=== PATIENT | male | born 1995 | race Caucasian/White ===

== ENCOUNTER 2020-08-22 00:50 | Emergency (ER) | payer OTHER ==
[~2020-08-22] VITALS: Ht 182.9 cm; Wt 98.6 kg
--- NOTE | 2020-08-22 01:32 | PHYS DOC ---
General Adult EDM: Chief Complaint: PSYCH EVALUATION HPI: HPI: 24-year-old male presents with suicidal thoughts. The patient has not been thinking about suicide, but has had several similar dreams where his grandmother dies and he tells himself that he might be better off going with her. He wakes up in a cold sweat. Patient is very bothered by this because he has never felt like a person that would think about suicide. He denies having any sort of a plan. 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 This conversation apparently was not helpful though the patient does not elaborate. He has no medical complaints at this time. Review of Systems: Review of Systems: Constitutional: Denies fever or chills Eyes: Denies change in visual acuity HENT: Denies nasal congestion or sore throat Respiratory: Denies cough or shortness of breath Cardiovascular: Denies chest pain or edema GI: Denies abdominal pain, nausea, vomiting, bloody stools or diarrhea : Denies dysuria Musculoskeletal: Denies back pain or joint pain Integument: Denies rash Neurologic: Denies headache, focal weakness or sensory changes Endocrine: Denies polyuria or polydipsia Lymphatic: Denies swollen glands Psychiatric: Suicidal dreams Physical Exam: PE: Constitutional: Well developed, well nourished, no acute distress, non-toxic appearance. [] HENT: Normocephalic, atraumatic, bilateral external ears normal, oropharynx moist, no oral exudates, nose normal. [] Eyes: PERRLA, EOMI, conjunctiva normal, no discharge. [] Neck: Normal range of motion, no tenderness, supple, no stridor. [] Cardiovascular: Heart rate regular rhythm, no murmur [] Lungs & Thorax: Bilateral breath sounds clear to auscultation [] Abdomen: Bowel sounds normal, soft, no tenderness, no masses, no pulsatile masses. [] Skin: Warm, dry, no erythema, no rash. [] Back: No tenderness, no CVA tenderness. [] Extremities: No tenderness, no cyanosis, no clubbing, ROM intact, no edema. [] Neurologic: Alert and oriented X 3, normal motor function, normal sensory function, no focal deficits noted. [] Psychologic: Affect normal, judgement normal, mood concerned. [] EKG: EKG: [] Radiology/Procedures: Radiology/Procedures: [] Heart Score: C/O Chest Pain: N/A Risk Factors: Risk Factors: DM, Current or recent (<one month) smoker, HTN, HLP, family history of CAD, obesity. Risk Scores: Score 0 - 3: 2.5% MACE over next 6 weeks - Discharge Home Score 4 - 6: 20.3% MACE over next 6 weeks - Admit for Clinical Observation Score 7 - 10: 72.7% MACE over next 6 weeks - Early Invasive Strategies Course & Med Decision Making: Course & Med Decision Making Pertinent Labs and Imaging studies reviewed. (See chart for details) The patient's labs are unremarkable except for an elevated white count. I do not see any evidence of infection as a cause. His urinalysis is negative for infection. His urine drug screen is negative. The patient is medically stable for behavioral admission. The behavioral health professional has determined that the patient can be discharged with a safety plan. He will follow-up outpatient. He is stable for discharge at this time. [] Ezio Disclaimer: Ezio Disclaimer: This electronic medical record was generated, in whole or in part, using a voice recognition dictation system. Departure Departure: Impression: Primary Impression: Suicidal thoughts Disposition: HOME / SELF CARE / HOMELESS Condition: STABLE Referrals: PCP,UNKNOWN (PCP) Patient Instructions: Suicidal Feelings, How to Help Yourself JERROD CHOI DO Aug 22, 2020 01:32
[2020-08-22 02:23] LABS: CREATININE 1.2 mg/dL (0.7-1.3); GFR 75.7; POTASSIUM 3.3 mmol/L (3.5-5.1)
[2020-08-22 02:24] LABS: BASO % 0 % (0-3); EOS # 0.2 x10^3/uL (0.0-0.7); EOS % 1 % (0-3); HEMATOCRIT 46.6 % (39.0-53.0); LYMPH # 2.5 x10^3/uL (1.0-4.8); LYMPH % 14 % (24-48); MEAN CORPUSCULAR HEMOGLOBIN 31 pg (25-35); MEAN CORPUSCULAR HGB CONC 34 g/dL (31-37); MEAN CORPUSCULAR VOLUME 90 fL (79-100); MONO # 0.8 x10^3/uL (0.0-1.1); MONO % 5 % (0-9); NEUT # 13.8 x10^3uL (1.8-7.7); NEUT % 80 % (31-73); PLATELET COUNT 296 x10^3/uL (140-400); RED CELL DISTRIBUTION WIDTH 12.6 % (11.5-14.5); WHITE BLOOD COUNT 17.4 x10^3/uL (4.0-11.0)
[2020-08-22 02:30] LABS: ALBUMIN 4.3 g/dL (3.4-5.0); ALBUMIN/GLOBULIN RATIO 1.3 (1.0-1.7); TOTAL BILIRUBIN 0.3 mg/dL (0.2-1.0); TOTAL PROTEIN 7.7 g/dL (6.4-8.2)
[2020-08-22 02:53] LABS: BARBITURATES NEG (NEG); BENZODIAZEPINES NEG (NEG); CANNABINOIDS NEG (NEG); COCAINE NEG (NEG); METHADONE NEG (NEG); OPIATES NEG (NEG); PHENCYCLIDINE NEG (NEG)
[2020-08-22 03:06] LABS: BACTERIA,URINE FEW /HPF (0-FEW); BILIRUBIN,URINE NEG (NEG); CLARITY,URINE HAZY; COLOR,URINE YELLOW; GLUCOSE,URINE NEG (NEG); NITRITE,URINE NEG (NEG); RBC,URINE 0 /HPF (0-2); SQUAMOUS EPITHELIAL CELL,UR OCC /LPF; WBC,URINE 0 /HPF (0-4)
[2020-08-22 03:07] LABS: HYALINE CASTS, URINE OCC /HPF
[2020-08-22 03:09] LABS: AMPHETAMINE/METHAMPHETAMINE NEG (NEG)
[2020-08-22 03:20] VITALS: BP 147/81
[2020-08-22 03:24] LABS: % SEGS 72 % (35-66)
[2020-08-22 03:25] LABS: % ATYL 8 % (0-0); % BANDS 3 % (0-9); % LYMPHS 13 % (24-48); % MONOS 4 % (0-10); PLT ESTIMATE ADEQUATE (ADEQUATE)
== END 2020-08-22 03:30 | disposition home or self-care (01) ==
LOC: ER 00:50
DX: R45.851 Suicidal ideations (principal)
CPT/HCPCS: 36415; 80053; 80307; 81001; 85007; 85025; 99285-25

== ENCOUNTER 2020-10-29 16:19 | Emergency (ER) | payer OTHER ==
[~2020-10-29] VITALS: Ht 182.9 cm; Wt 98.6 kg
[2020-10-29 16:29] VITALS: BP 147/81
[2020-10-29] MEDS ORDERED: PRED50TA PO (16:58)
--- NOTE | 2020-10-29 16:58 | PHYS DOC ---
Past History Past Medical History: Anxiety, Other Additional Past Medical Histor: left wrist fx Past Surgical History: Other Additional Past Surgical Histo: [place] teeth removed Alcohol Use: None General Adult EDM: Chief Complaint: HIP PAIN HPI: HPI: 25-year-old male presents with right hip pain. 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 They have been a longer and more intense than his typical training. He has been having intermittent pain with the right lateral hip as well as the flexor muscles on both sides but more on the right. He presents today because they had a longer run yesterday and today was difficult for him to get up and down out of chairs. He had an appointment with his primary physician but that person had to leave for a medical emergency and told the patient come to the ER. Patient denies any falls. He has no other complaints at this time. Review of Systems: Review of Systems: Constitutional: Denies fever or chills Eyes: Denies change in visual acuity HENT: Denies nasal congestion or sore throat Respiratory: Denies cough or shortness of breath Cardiovascular: Denies chest pain or edema GI: Denies abdominal pain, nausea, vomiting, bloody stools or diarrhea : Denies dysuria Musculoskeletal: Right hip pain Integument: Denies rash Neurologic: Denies headache, focal weakness or sensory changes Endocrine: Denies polyuria or polydipsia Lymphatic: Denies swollen glands Psychiatric: Denies depression or anxiety Allergies: Allergies: Allergies Coded Allergies Type Severity Reaction Last Updated Verified No Known Drug Allergies 08/22/20 No Physical Exam: PE: Constitutional: Well developed, well nourished, no acute distress, non-toxic appearance. [] HENT: Normocephalic, atraumatic, bilateral external ears normal, oropharynx moist, no oral exudates, nose normal. [] Eyes: PERRLA, EOMI, conjunctiva normal, no discharge. [] Neck: Normal range of motion, no tenderness, supple, no stridor. [] Cardiovascular: Heart rate regular rhythm, no murmur [] Lungs & Thorax: Bilateral breath sounds clear to auscultation [] Abdomen: Bowel sounds normal, soft, no tenderness, no masses, no pulsatile masses. [] Skin: Warm, dry, no erythema, no rash. [] Back: No tenderness, no CVA tenderness. [] Extremities: Tenderness over the right greater trochanter of femur; tenderness with deep palpation of the psoas right side. [] Neurologic: Alert and oriented X 3, normal motor function, normal sensory function, no focal deficits noted. [] Psychologic: Affect normal, judgement normal, mood normal. [] Current Patient Data: Vital Signs: Vital Signs Date Time Temp Pulse Resp B/P (MAP) Pulse Ox O2 Delivery O2 Flow Rate FiO2 10/29/20 16:29 98.3 68 147/81 98 Room Air EKG: EKG: [] Radiology/Procedures: Radiology/Procedures: [] Heart Score: C/O Chest Pain: N/A Risk Factors: Risk Factors: DM, Current or recent (<one month) smoker, HTN, HLP, family history of CAD, obesity. Risk Scores: Score 0 - 3: 2.5% MACE over next 6 weeks - Discharge Home Score 4 - 6: 20.3% MACE over next 6 weeks - Admit for Clinical Observation Score 7 - 10: 72.7% MACE over next 6 weeks - Early Invasive Strategies Course & Med Decision Making: Course & Med Decision Making Pertinent Labs and Imaging studies reviewed. (See chart for details) Based on the patient's history and my exam I believe he has trochanteric bursitis as well as strain of the iliopsoas muscle due to overuse. I will prescribe prednisone for 5 days and recommend 1 week of full rest from physical training. [place] He is stable for discharge at this time. [] Korinaon Disclaimer: Ezio Disclaimer: This electronic medical record was generated, in whole or in part, using a voice recognition dictation system. Departure Departure: Impression: Primary Impression: Trochanteric bursitis of right hip Additional Impression: Strain of hip flexor Qualified Codes: S76.011A - Strain of muscle, fascia and tendon of right hip, initial encounter Disposition: HOME / SELF CARE / HOMELESS Condition: STABLE Referrals: ROBERTO PAGE MD (PCP) Patient Instructions: Hip Pain, Trochanteric Bursitis-[facility] Scripts Prednisone (PREDNISONE) 50 Mg Tablet 1 TAB PO DAILY for hip pain, #5 TAB Prov: JERROD CHOI DO 10/29/20 JERROD CHOI DO Oct 29, 2020 16:58
== END 2020-10-29 16:38 | disposition home or self-care (01) ==
LOC: ER 16:19
DX: S76.011A Strain of muscle, fascia and tendon of right hip, initial encounter (principal); M70.61 Trochanteric bursitis, right hip; X50.9XXA Other and unspecified overexertion or strenuous movements or postures, initial encounter; Y93.02 Activity, running; Y92.89 Other specified places as the place of occurrence of the external cause; Y99.8 Other external cause status
CPT/HCPCS: 99283